=== PATIENT | female | born 1995 | race Two or more races ===

== ENCOUNTER 2023-05-31 20:10 | Emergency (ER) | payer OTHER ==
[~2023-05-31] VITALS: Ht 170.2 cm; Wt 74.5 kg
[2023-05-31] MEDS ORDERED: AMOXICILLIN/CLAVUL 875 MG TAB PO ONE (21:45)
[2023-05-31] MEDS ORDERED: TETANUS-DIPTH-ACEL PERTUSSIS 0.5ML SYR Tdap IM ONE (21:45)
[2023-05-31] MEDS ORDERED: MUPI2OIN2 EX (23:50)
[2023-05-31] MEDS ORDERED: IBU600T PO (23:50)
[2023-05-31] MEDS ORDERED: AUG875T PO (23:50)
[2023-06-01 00:23] VITALS: BP 132/69; PULSE 86; RESP 18; TEMP 98.4; O2SAT 98
[2023-06-01] MEDS ORDERED: HYDROcodone-ACET 5/325MG TAB PO ONE ×2 (00:30)
== END 2023-06-01 00:58 | disposition home or self-care (01) ==
LOC: ER 20:12
DX: S62.633B Displaced fracture of distal phalanx of left middle finger, initial encounter for open fracture (principal); W54.0XXA Bitten by dog, initial encounter; Y93.89 Activity, other specified; Y92.89 Other specified places as the place of occurrence of the external cause; Y99.8 Other external cause status
CPT/HCPCS: 12001; 73130; 90471; 90715